=== PATIENT | female | born 1985 | race African-American/Black ===

== ENCOUNTER 2017-12-14 09:44 | Inpatient (IN) | payer MEDICAID ==
[2017-12-14] MEDS ORDERED: SUBLIMAZE IV PRN (10:31)
[2017-12-14 10:58] LABS: Hematocrit 42.8 % (30.3-42.9); Hemoglobin 14.5 gm/dl (10.1-14.3); Mean Corpuscular HGB Conc 34 % (30-34); Mean Corpuscular Hemoglobin 30 pg (28-32); Mean Corpuscular Volume 90 fl (79-97); Platelet Count 225 K/mm3 (140-440); Red Blood Count 4.77 M/mm3 (3.65-5.03); Red Cell Distribution Width 14.5 % (13.2-15.2)
[2017-12-14] MEDS ORDERED: LACTATED RINGERS 1,000 ML IV SCH ×2 (11:00→15:00)
--- NOTE | 2017-12-14 13:04 | History and Physical Report ---
History of Present Illness Date of examination: 12/14/17 Date of admission: 12/14/17 09:45 Chief complaint: contractions History of present illness: This is a 32 yo at 38+ weeks admitted to [facility] for contractions. She is a patient of [facility] since 23 weeks transferred to our practivce. She has been non compliant from 16-20 weeks. GDM on glyburide. Hx of ascus pap and HPV+. Past History Past Medical History: no pertinent history Past Surgical History: no surgical history Family/Genetic History: none Social history: single. denies: smoking, alcohol abuse, prescription drug abuse - Obstetrical History Expected Date of Delivery: 12/26/17 Actual Gestation: 38 Week(s) 2 Day(s) : 1 Hx # Term Pregnancies: 0 Number of Pregnancies: 0 Spontaneous Abortions: 0 Induced : 0 Number of Living Children: 0 Medications and Allergies Allergies Allergy/AdvReac Type Severity Reaction Status Date / Time No Known Allergies Allergy Unverified 12/14/17 09:53 Home Medications Medication Instructions Recorded Confirmed Last Taken Type Pnv,Calcium 72/Iron/Folic Acid 1 tab PO DAILY 12/14/17 12/14/17 12/13/17 History [Pnv Plus Multivit Tab] glyBURIDE [Diabeta] 1 tab PO BID 12/14/17 12/14/17 12/14/17 History Active Meds: Active Medications Fentanyl (Sublimaze) 100 mcg IV Q2H PRN PRN Reason: Pain Lactated Ringer's (Lactated Ringers) 1,000 mls @ 125 mls/hr IV DIRECT FARNAZ Review of Systems All systems: negative Genitourinary: contractions - Vital Signs Vital signs: Vital Signs Pulse BP 82 126/78 12/14/17 10:03 12/14/17 10:03 Temp Pulse Resp BP Pulse Ox 82 126/78 12/14/17 10:03 12/14/17 10:03 - Physical Exam Breasts: Positive: normal Cardiovascular: Regular rate, Normal S1 Lungs: Positive: Clear to auscultation, Normal air movement Abdomen: Positive: normal appearance, soft, normal bowel sounds. Negative: distention, tenderness, guarding Genitourinary (Female): Positive: normal external genitalia, normal perenium Vulva: both: normal Vagina: Positive: normal moisture Uterus: Positive: normal size, normal contour Anus/Rectum: Positive: normal perianal skin Extremities: Positive: normal Deep Tendon Reflex Grade: Normal +2 - Obstetrical FHR: category 1 Uterine Contraction Monitor Mode: Palpation Cervical Dilatation: 5 Cervical Effacement Percentage: 80 station: -1 Uterine Contraction Pattern: Regular Uterine Tone Measurement Phase: Contraction Uterine Contraction Intensity: Strong/Firm Results Result Diagrams: 12/14/17 10:30 Abnormal lab results 12/14/17 12/14/17 Range/Units 10:30 11:19 Hgb 14.5 H (10.1-14.3) gm/dl POC Glucose 55 L (70-105) All other labs normal. Assessment and Plan A/P IUP 38 weeks GDM on glyuride admit IVF and labs offer epidural expect vaginal delivery
[2017-12-14] MEDS ORDERED: PITOCin/NS 20 UNIT/1000ML DRIP 20,000 MILLIUNITS/1,000 ML BAG IV ONE ×2 (13:07→14:14)
[2017-12-14] MEDS ORDERED: XYLOCAINE 2% INFILTRATI ONE ×2 (13:52→14:31)
[2017-12-14] MEDS ORDERED: METHERGINE IM ONE (13:57)
[2017-12-14] MEDS ORDERED: CYTOTEC PR ONE ×2 (14:00→14:31)
[2017-12-14] MEDS ORDERED: CYTOTEC ONE (14:09)
--- NOTE | 2017-12-14 14:27 | Procedure Note ---
OB Delivery Note - Delivery Date of Delivery: 12/14/17 Surgeon: MARIZA HAMLIN Estimated blood loss: other - Vaginal Delivery presentation: vertex Delivery position: OA Intrapartum events: none, meconium Delivery induction: none (``) Delivery monitor: external FHT, external uterine Route of delivery: Indicators for instrumentation: nonreassuring FHR tracing Delivery placenta: spontaneous Delivery cord: nuchal cord, 3 umbilical vessels Episiotomy: none Delivery laceration: 2nd degree Delivery repair: vicryl Anesthesia: local Delivery comments: Patient was noted to be c/c/ +1 and delivered a viable male infant with Apgars 8 and 9 at 1352 via vacuum with gentle tension. The shoulders delivered easily. The baby placed on the mom with Peds in room secondary to meconium. The Cord was clamped and cut. The placenta delivered intact with 3 vessel cord at 1355. The perineum evaluted and noted to have a 2nd degree laceration repaired with 2 -0 vicryl. Weight of baby 8 pounds 7 ounces. methergine 0.2mg, cytotec 800 ug for good hemostasis. Patient tolerated procedure well. - Infant A at 1 minute: 8 at 5 minutes: 9 Gender: Male
[2017-12-14] MEDS ORDERED: DULCOLAX PR PRN (14:31)
[2017-12-14] MEDS ORDERED: ePHEDrine SULFATE IV PRN (14:31)
[2017-12-14] MEDS ORDERED: PHENERGAN PR PRN (14:31)
[2017-12-14] MEDS ORDERED: MINERAL OIL PO PRN (14:31)
[2017-12-14] MEDS ORDERED: BRETHINE IVP PRN (14:31)
[2017-12-14] MEDS ORDERED: PERCOCET 5/325 PO PRN (14:31)
[2017-12-14] MEDS ORDERED: TORADOL IV PRN (14:31)
[2017-12-14] MEDS ORDERED: BRETHINE SUB-Q PRN (14:31)
[2017-12-14] MEDS ORDERED: LANSINOH TP PRN (14:31)
[2017-12-14] MEDS ORDERED: MILK OF MAGNESIA PO PRN (14:31)
[2017-12-14] MEDS ORDERED: PHENERGAN PO PRN (14:31)
[2017-12-14] MEDS ORDERED: BENADRYL PO PRN (14:31)
[2017-12-14] MEDS ORDERED: TYLENOL PO PRN (14:31)
[2017-12-14] MEDS ORDERED: ZOFRAN IV PRN (14:31)
[2017-12-14] MEDS ORDERED: TUCKS PAD TP PRN (14:31)
[2017-12-14] MEDS ORDERED: NORCO 5/325 PO PRN (14:31)
[2017-12-14] MEDS ORDERED: PITOCin/NS 20 UNIT/1000ML DRIP 20 UNITS/1,000 ML BAG IV SCH (15:00)
[2017-12-14] MEDS ORDERED: PITOCin/NS 30 UNIT/500ML 30 UNITS/500 ML BAG IV SCH ×2 (15:00)
[2017-12-14] MEDS ORDERED: SODIUM CHLORIDE FLUSH SYRINGE 10 ML IV NR (15:00)
[2017-12-14] MEDS: MOTRIN PO SCH (23:37)
[2017-12-14] MEDS: METHERGINE PO SCH (23:37)
[2017-12-14] MEDS: COLACE PO SCH (23:38)
[2017-12-15 02:26] LABS: Hematocrit 35.2 % (30.3-42.9); Hemoglobin 11.8 gm/dl (10.1-14.3)
[2017-12-15] MEDS: MOTRIN PO SCH ×4 (05:45→23:43)
[2017-12-15] MEDS: METHERGINE PO SCH ×2 (05:46→18:30)
[2017-12-15] MEDS: PRENATAL VITAMIN PO SCH (11:52)
[2017-12-15] MEDS: COLACE PO SCH ×2 (11:52→23:44)
[2017-12-15] MEDS: DERMOPLAST TP PRN (12:00)
--- NOTE | 2017-12-15 12:24 | Progress Note ---
Assessment and Plan A: PPD#1 s/p VAVD at term Gestational Diabetes P: Routine care. Subjective - Subjective Date of service: 12/15/17 Principal diagnosis: s/p at term; Gestational Diabetes Interval history: Pt has no unusual complaints. Lochia improving. Patient reports: appetite normal, voiding normally, pain well controlled, ambulating normally : doing well Objective - Vital Signs Latest vital signs: Vital Signs Temp Pulse Resp BP BP Pulse Ox 12/15/17 07:52 98.0 F 78 16 109/68 96 12/15/17 04:15 98 F 69 18 112/78 12/15/17 00:30 98 F 77 18 104/78 12/14/17 19:30 98.7 F 69 16 112/74 12/14/17 16:00 98.6 F 82 18 122/87 99 12/14/17 15:39 74 126/72 12/14/17 15:24 73 122/67 12/14/17 15:10 70 107/50 12/14/17 14:24 90 120/68 12/14/17 14:09 90 111/74 Intake and Output 12/14/17 12/15/17 12/15/17 22:59 06:59 14:59 Intake Total 300 Output Total 800 1200 Balance -500 -1200 Intake: Intake, Free Water 300 Output: Urine 800 1200 Void 800 1200 Other: Total, Output Amount 800 600 # Voids Void 1 1 - Exam Breasts: Present: deferred Cardiovascular: Present: Regular rate Lungs: Present: Clear to auscultation Abdomen: Present: soft Uterus: Present: fundal height at umbilicus Extremities: Present: normal
[2017-12-15] MEDS ORDERED: BOOSTRIX IM ONE (14:31)
[2017-12-15] MEDS ORDERED: M-M-R II VACCINE SUB-Q ONE (14:31)
[2017-12-16] MEDS: MOTRIN PO SCH ×2 (06:09→11:31)
--- NOTE | 2017-12-16 07:34 | Discharge Summary ---
Providers - Providers Date of Admission: 12/14/17 09:45 Date of discharge: 12/16/17 Attending physician: MARIZA HAMLIN MD Primary care physician: MARIZA HAMLIN MD Hospitalization Reason for admission: active labor, IUP at term Delivery: Laceration: 2nd degree Other procedures: none complications: none Discharge diagnosis: IUP at term delivered [place] baby: male Condition at discharge: Good Disposition: DC-01 TO HOME OR SELFCARE Plan - Discharge Medications Prescriptions: Ferrous Sulfate 325 mg PO BID #60 tablet. HYDROcodone/APAP 5-325 [[place] 5/325] 1 each PO Q6HR PRN #30 tablet PRN Reason: Pain Ibuprofen [Motrin] 600 mg PO Q8H PRN #30 tablet PRN Reason: Pain Ibuprofen [Motrin] 800 mg PO Q8HR PRN #30 tablet PRN Reason: Pain, Moderate (4-6) oxyCODONE /ACETAMINOPHEN [Percocet 5/325] 1 tab PO Q6HR PRN #30 tablet PRN Reason: Pain - Provider Discharge Summary Activity: routine, no sex for 6 weeks, no heavy lifting 4 weeks, no strenuous exercise Diet: routine Instructions: routine Additional instructions: [] Smoking cessation referral if applicable(refer to patient education folder for contact #) [] Refer to [facility] Booklet Call your doctor immediately for: * Fever > 100.5 * Heavy vaginal bleeding ( >1 pad per hour) * Severe persistent headache * Shortness of breath * Reddened, hot, painful area to leg or breast * Drainage or odor from incision. * Keep incision clean and dry at all times and follow doctor's instructions regarding bathing/showering - Follow up plan Follow up: MARIZA HAMLIN MD [Primary Care Provider] - (RTO 4 weeks . Call office if circumcision desired)
[2017-12-16] MEDS: PRENATAL VITAMIN PO SCH (11:30)
[2017-12-16] MEDS: COLACE PO SCH (11:31)
[2017-12-16 16:34] VITALS: BP 112/69
[2017-12-16] MEDS: DERMOPLAST TP PRN (16:35)
== END 2017-12-16 16:36 | disposition home or self-care (01) | DRG 775 ==
LOC: TRG 09:44 → LD 09:45 → TRG 10:01 → OB 16:16
PROVIDERS: ADMIT Obstetrics & Gynecology; ATTEND Obstetrics & Gynecology
PROC: 10E0XZZ Delivery of Products of Conception, External Approach (ICD-10-PCS; principal; 2017-12-14)
PROC: 0KQM0ZZ Repair Perineum Muscle, Open Approach (ICD-10-PCS; 2017-12-14)
PROC: 3E0234Z Introduction of Serum, Toxoid and Vaccine into Muscle, Percutaneous Approach (ICD-10-PCS; 2017-12-14)
DX: O76 Abnormality in fetal heart rate and rhythm complicating labor and delivery (principal); Z3A.38 38 weeks gestation of pregnancy; Z37.0 Single live birth; Z23 Encounter for immunization; O77.0 Labor and delivery complicated by meconium in amniotic fluid; O70.1 Second degree perineal laceration during delivery; O24.429 Gestational diabetes mellitus in childbirth, unspecified control; O69.81X0 Labor and delivery complicated by cord around neck, without compression, not applicable or unspecified
CPT/HCPCS: 36415; 82962; 85014; 85018; 85027; 86592; 86850; 86900; 86901; 99211; G0463; J2210; J2590; J3010; J7120